=== PATIENT | male | born 1950 | race Caucasian/White ===

== ENCOUNTER 2020-06-09 09:41 | Day surgery (SDC) | payer MEDICARE, OTHER ==
[2020-06-02 14:24] LABS: BASOPHILS # (AUTO) 0.1 X10'3 (0-0.2); BASOPHILS % (AUTO) 0.9 % (0-1); EOSINOPHILS # (AUTO) 0.4 X10'3 (0-0.9); EOSINOPHILS % (AUTO) 4.9 % (0-6); LYMPHOCYTES # (AUTO) 1.4 X10'3 (1.1-4.8); LYMPHOCYTES % (AUTO) 16.8 % (21-51); MEAN CORPUSCULAR HEMOGLOBIN 27.6 PG (27.0-31.0); MEAN CORPUSCULAR HGB CONC 33.6 g/dL (33.0-36.5); MEAN CORPUSCULAR VOLUME 82.2 FL (78-98); MEAN PLATELET VOLUME 10.1 FL (7.4-10.4); MONOCYTES # (AUTO) 0.7 X10'3 (0-0.9); MONOCYTES % (AUTO) 8.7 % (2-12); NEUTROPHILS # (AUTO) 5.9 X10'3 (1.8-7.7); NEUTROPHILS % (AUTO) 68.7 % (42-75); PRE OP HEMATOCRIT 42.8 % (42.0-52.0); PRE OP HEMOGLOBIN 14.4 g/dL (14.0-17.9); PRE OP PLATELET COUNT 183 X10'3 (140-440); RED CELL DISTRIBUTION WIDTH 15.1 % (11.5-14.5)
[2020-06-02 14:27] LABS: CLARITY,URINE CLEAR (Clear); COLOR,URINE YELLOW (Yellow); GLUCOSE, URINE NEGATIVE (Neg); KETONES,URINE NEGATIVE (Neg); LEUKOCYTE ESTERASE ,URINE NEGATIVE (Neg); NITRITES, URINE NEGATIVE (Neg); OCCULT BLOOD,URINE NEGATIVE (Neg); PROTEIN,URINE NEGATIVE (Neg); UROBILINOGEN,URINE 0.2 E.U/dL (0.2-1.0)
[2020-06-02 14:28] LABS: UA COLLECTION TYPE NON-SPECIFIED
[2020-06-02 14:40] LABS: ALBUMIN 3.8 G/DL (3.4-5.0); ALKALINE PHOSPHATASE 115 IU/L (46-116); BLOOD UREA NITROGEN 14 MG/DL (7-18); BUN/CREATININE RATIO 13.6 (5.4-32.0); CALCIUM 9.5 MG/DL (8.5-10.1); CHLORIDE 103 MMOL/L (99-107); CREATININE 1.03 MG/DL (0.60-1.10); PRE OP ALT 26 U/L (30-65); PRE OP ANION GAP 8 (8-16); PRE OP AST 23 U/L (10-37); PRE OP BILIRUB, TOTAL 0.5 MG/DL (0.0-1.0); PRE OP GLUCOSE 146 MG/DL (70-104); PRE OP POTASSIUM 4.1 MMOL/L (3.4-5.1); PRE OP SODIUM 138 MMOL/L (135-145); TOTAL CARBON DIOXIDE 27.4 MMOL/L (24-32); TOTAL PROTEIN 7.6 G/DL (6.4-8.2); eGFR 71 ML/MIN
[~2020-06-09] VITALS: Ht 188 cm; Wt 134.1 kg
[2020-06-09] VITALS (11 sets, daily range): BP systolic 112–154; BP diastolic 56–90
[~2020-06-09 09:41] MED LIST: AMIT25TA19 PO; ASPI-1264 PO; BIMA2.5D EACHEYE; BUPIVAcaine/PF 2.5 mg/ml (0.25%) 30ml vial ONE; DOXY-224 PO; ESCI10TA61 PO; HYDR-3973 PO; HYDR12.5 PO; LISI-600 PO; METF-950 PO; MULT-1085 PO; OMEP-50 PO; ROSU10TA2 PO; ceFAZolin inj. 3,000 MG in normal saline 100ml IV soln 100 ML IV ONE; famotidine 20mg tablet PO ONE; ringers solution, lacted 1,000 ML IV SCH
[2020-06-09] MEDS ORDERED: morphine 2 MG/ML inj. syringe IV PRN (14:10)
[2020-06-09] MEDS ORDERED: ringers solution, lacted 1,000 ML IV SCH (14:10)
[2020-06-09] MEDS ORDERED: hydrALAZINE 20mg/ml inj. IV PRN (14:10)
[2020-06-09] MEDS ORDERED: ondansetron/PF 4mg/2ml inj IV PRN (14:10)
[2020-06-09] MEDS ORDERED: fentaNYL/PF 50MCG/1 ML 2ML syringe IV PRN ×2 (14:10)
[2020-06-09] MEDS ORDERED: labetalol 20mg/4ml (5mg/ml) syringe IV PRN (14:10)
[2020-06-09] MEDS ORDERED: morphine 4 MG/ML inj SYRINge IV PRN (14:10)
[2020-06-09] MEDS ORDERED: midazolam 2 mg/2 ml injection ONE (14:18)
[2020-06-09] MEDS ORDERED: fentaNYL /PF 50mcg/ml 5ml ampule ONE (14:18)
[2020-06-09] MEDS ORDERED: rocuronium 10mg/ml inj IV ONE ×2 (15:06→15:22)
[2020-06-09] MEDS ORDERED: sevoflurane 250ml liquid IH ONE (15:06)
[2020-06-09] MEDS ORDERED: labetalol 20mg/4ml (5mg/ml) syringe IV ONE (15:06)
[2020-06-09] MEDS ORDERED: LIDOcaine 2% (20mg/ml) 5ml vial ONE (15:21)
[2020-06-09] MEDS ORDERED: propofol inj 20 ML IV ONE (15:21)
[2020-06-09] MEDS ORDERED: glycopyrrolate 0.2mg/ml inj ONE (15:22)
[2020-06-09] MEDS ORDERED: neostigmine methylsulfate 1 MG/ML 10ml vial ONE (15:22)
[2020-06-09] MEDS ORDERED: ondansetron/PF 4mg/2ml inj ONE (15:22)
[2020-06-09] MEDS ORDERED: dexamethasone sod phosphate 4mg/ml inj. ONE (15:23)
[2020-06-09] MEDS ORDERED: ceFAZolin 1000mg inj ONE (18:08)
[2020-06-09] MEDS ORDERED: fentaNYL/PF 50MCG/1 ML 2ML syringe ONE (18:30)
--- NOTE | 2020-06-09 19:34 | NUR ---
Received from OR via [facility] , accompanied by Anesthesiologist SILVIA and report given by Anesthesiolgist. PATIENT WITH 20G PIV IN LEFT UE RUNNING LR AT 100. PATIENT WITH 3 ABDOMINAL BANDAIDS PRESENT- ALL CDI. . VSS. DENIES PAIN. 10L MASK ON WITH 99% SATURATIONS. VSS. Addendum: 06/09/20 at 1947 by Damon Talavera RN, RN Amended: Links added.
--- NOTE | 2020-06-09 20:29 | NUR ---
DENTURES IN CHART IN A LABELED CUP. GAVE PATIENT UPPER DENTURE ONLY TO FIND THAT THE CUP WAS CRACKED AND A TOOTH WAS BROKEN OFF OF THE UPPER DENTURE. WILL NOTIFY RECOVERY ROOM CASTINGS TRIMMER OF THIS FINDING. PATIENT WILL TAKEN TOOTH HOME WITH HIM UPON DISCHARGE. Addendum: 06/09/20 at 2031 by Damon Talavera RN, RN Amended: Links added.
--- NOTE | 2020-06-09 21:14 | NUR ---
PATIENT AND FAMILY AND THEY HAVE VERBALIZED UNDERSTANDING, OPPORTUNITY TO ASK QUESTIONS GIVEN AND PATIENT COMFORTABLE WITH DC. IV TAKEN OUT WITHOUT COMPLICATION. PATIENT HAS MET ALL DC CRITERIA FOR DC HOME. I HAVE REVIEWED D/C INSTRUCTIONS WITH OUT VIA WHEELCHAIR WHERE PATIENT WAS TAKEN HOME WITH ALL BELONGINGS. FAMILY GAVE PATIENT TRANSPORT HOME. LONG DISCUSSION WITH AND PATIENT ABOUT USING CPAP X24 HOURS. VSS. HAS MET ALL CRITERIA FOR DC HOME. TAKEN HOME VIA TAXI. Addendum: 06/09/20 at 2139 by Damon Talavera RN, RN Amended: Links added.
== END 2020-06-09 21:14 | disposition home or self-care (01) ==
LOC: PAS 09:41
PROVIDERS: ATTEND Surgery
DX: K43.2 Incisional hernia without obstruction or gangrene (principal); F41.9 Anxiety disorder, unspecified; E78.00 Pure hypercholesterolemia, unspecified; G47.30 Sleep apnea, unspecified; M19.90 Unspecified osteoarthritis, unspecified site; G43.909 Migraine, unspecified, not intractable, without status migrainosus; E66.9 Obesity, unspecified; Z68.38 Body mass index [BMI] 38.0-38.9, adult; E11.22 Type 2 diabetes mellitus with diabetic chronic kidney disease; I12.9 Hypertensive chronic kidney disease with stage 1 through stage 4 chronic kidney disease, or unspecified chronic kidney disease; N18.2 Chronic kidney disease, stage 2 (mild); Z79.899 Other long term (current) drug therapy; Z79.84 Long term (current) use of oral hypoglycemic drugs; Z98.890 Other specified postprocedural states; Z20.828 Contact with and (suspected) exposure to other viral communicable diseases; Z87.891 Personal history of nicotine dependence
CPT/HCPCS: 36415; 49654; 80053; 81003; 82948; 85025; 87635; 93005; C1781; J0690; J1100; J2001; J2250; J2270; J2405; J2704; J2710; J3010; J3490; A4215; A4618; J7120